=== PATIENT | female | born 1990 | race Caucasian/White ===

== ENCOUNTER 2019-08-16 14:30 | Emergency (ER) | payer MEDICARE, OTHER ==
[2019-08-16] MEDS: ACETAMINOPHEN 500 MG TAB PO (15:07)
== END 2019-08-16 16:20 | disposition home or self-care (01) ==
LOC: FTE 14:30
DX: M54.2 Cervicalgia (principal); M54.9 Dorsalgia, unspecified
CPT/HCPCS: 81025; 99282